=== PATIENT | male | born 1990 | race Caucasian/White ===

== ENCOUNTER 2021-11-18 08:50 | Emergency (ER) | payer OTHER ==
[2021-11-18 09:40] LABS: Absolute Lymphocytes (CBC) 0.5 K/uL (0.7-4.9); Hematocrit 46.1 % (39.6-49.0); Lymphocytes % 18.1 % (15.3-44.8); MPV 8.4 fL (7.6-11.3); RBC Red Blood Cell Count 4.93 M/uL (4.33-5.43)
[2021-11-18 10:01] LABS: BUN Blood Urea Nitrogen 13 mg/dL (7-18); Bicarbonate 33 mmol/L (21-32); Ferritin 315.5 ng/mL (26-388); Glucose Level 131 mg/dL (74-106); Sodium Level 141 mmol/L (136-145)
[2021-11-18 10:31] LABS: Blood Morphology Comment NOT SEEN (NOT SEEN); Platelet Estimate ADEQ; White Blood Cell Scan OK (OK)
--- NOTE | 2021-11-18 10:43 | RAD REPORT ---
EXAM DESCRIPTION: CT - Chest For Pe Angio - 11/18/2021 10:26 am CLINICAL HISTORY: Chest pain. DYSPNEA COMPARISON: Chest Single View dated 11/18/2021 TECHNIQUE: CT angiogram of the pulmonary arteries was performed with MIP. All CT scans are performed using dose optimization technique as appropriate and may include automated exposure control or mA/KV adjustment according to patient size. FINDINGS: No evidence of pulmonary thromboembolism. No acute aortic finding demonstrated. Moderate patchy opacities are present in the right lung predominately, most compatible with pneumonia . The left lung is essentially clear. Trace right pleural fluid. No concerning bony finding. IMPRESSION: No evidence of pulmonary thromboembolism. Moderate patchy opacity in the right lung most compatible with pneumonia.
--- NOTE | 2021-11-18 10:45 | RAD REPORT ---
EXAM DESCRIPTION: RAD - Chest Single View - 11/18/2021 10:29 am CLINICAL HISTORY: DYSPNEA Chest pain. COMPARISON: No comparisons FINDINGS: Portable technique limits examination quality. Moderate opacity in the right lung is present compatible with pneumonia. The left lung is grossly josé miguel ar. The heart is normal in size. No displaced fractures.
--- NOTE | 2021-11-18 10:59 | EDPHYS ---
Physician Documentation [facility] Name: Rc Huertas Age: 31 yrs Sex: Male : 1990 Arrival Date: 11/18/2021 Time: 08:56 Bed 14 Private MD: Daniel Frye C ED Physician Hank Ramires HPI: 11/18 09:27 This 31 yrs old Male presents to ER via Wheelchair with complaints of Covid+,Low O2. kb 09:28 The patient or guardian reports congestion, low o2 sat. Onset: The symptoms/episode kb began/occurred 6 day(s) ago. Severity of symptoms: At their worst the symptoms were moderate, in the emergency department the symptoms are unchanged. Modifying factors: The symptoms are alleviated by nothing, the symptoms are aggravated by nothing. Associated signs and symptoms: The patient has no apparent associated signs or symptoms. The patient has not experienced similar symptoms in the past. The patient has been recently seen by a physician:. Mother states pt was diagnosed with covid 6 days ago. States she has been monitoring oxygen sat and this morning it was 88%, then 93% before leaving the house. Called Dr Frye and was told to come in for eval. No resp distress noted. O2 sat 94-96% on room air. Historical: - Allergies: 09:04 Sulfa (Sulfonamide Antibiotics); ap3 - Home Meds: 09:04 Eliquis 2.5 mg oral tab 1 tab 2 times per day [Active]; ap3 - PMHx: 09:04 Down syndrome; DVT-leg; cervival fusion; hip replacement; ap3 - Immunization history:: Client reports having NOT received the Covid vaccine. - Social history:: Smoking status: unknown. ROS: 09:30 Constitutional: Negative for fever, chills, and weight loss. kb 09:30 Respiratory: Positive for shortness of breath. 09:30 All other systems are negative. Exam: 09:31 Constitutional: This is a well developed, well nourished patient who is awake, alert, kb and in no acute distress. Head/Face: Normocephalic, atraumatic. ENT: Moist Mucous membranes Cardiovascular: Regular rate and rhythm with a normal S1 and S2. No gallops, murmurs, or rubs. No pulse deficits. Respiratory: Respirations even and unlabored. No increased work of breathing. Talking in full sentences Skin: Warm, dry with normal turgor. Normal color. MS/ Extremity: Pulses equal, no cyanosis. Neurovascular intact. Full, normal range of motion. Neuro: Awake and alert, GCS 15, oriented to person, place, time, and situation. Moves all extremities. Normal gait. Psych: Awake, alert, with orientation to person, place and time. Behavior, mood, and affect are within normal limits. Vital Signs: 09:00 BP 118 / 76; Pulse 76; Resp 18; Temp 97.9; Pulse Ox 94% on R/A; Weight 74.84 kg; Height ap3 5 ft. 6 in. (167.64 cm); 10:12 BP 106 / 79; Pulse 73; Resp 18; Pulse Ox 95% on R/A; ic1 11:08 BP 102 / 62; Pulse 72; Resp 18; Pulse Ox 97% on R/A; ic1 09:00 Body Mass Index 26.63 (74.84 kg, 167.64 cm) ap3 MDM: 09:06 Patient medically screened. kb 09:30 Data reviewed: vital signs, nurses notes. Data interpreted: Pulse oximetry: on room air kb is 96 %. Interpretation: normal. 10:54 Counseling: I had a detailed discussion with the patient and/or guardian regarding: the kb historical points, exam findings, and any diagnostic results supporting the discharge/admit diagnosis, lab results, radiology results, the need for further work-up and treatment in the hospital. Physician consultation: Biju Cano MD. 11:09 ED course: Parents do not want pt to be admitted at this time. Want to take pt home to care for him. States they will continue to monitor oxygen sat at home and return for sat less that 90% sustained. . 11/18 09:06 Order name: BMP; Complete Time: 10:03 kb 11/18 09:06 Order name: CBC with Diff; Complete Time: 10:33 kb 11/18 09:06 Order name: D-Dimer; Complete Time: 10:03 kb 11/18 09:06 Order name: Ferritin; Complete Time: 10:03 kb 11/18 09:06 Order name: Lactate; Complete Time: 09:59 kb 11/18 09:06 Order name: Procalcitonin; Complete Time: 10:20 kb 11/18 09:06 Order name: Troponin HS; Complete Time: 10:03 kb 11/18 09:06 Order name: CXR XRAY; Complete Time: 10:47 kb 11/18 09:06 Order name: EKG; Complete Time: 09:07 kb 11/18 09:58 Order name: CBC Smear Scan; Complete Time: 10:33 EDMS 11/18 10:01 Order name: CT Chest For PE Angio; Complete Time: 10:47 kb 11/18 09:06 Order name: Cardiac monitoring kb 11/18 09:06 Order name: Droplet/Contact Precautions; Complete Time: 09:31 kb 11/18 09:06 Order name: EKG - Nurse/Tech; Complete Time: 09:31 kb 11/18 09:06 Order name: IV Start; Complete Time: 09:31 kb 11/18 09:06 Order name: Labs collected and sent; Complete Time: 09:31 kb 11/18 09:06 Order name: O2 Per Protocol; Complete Time: 09:31 kb 11/18 09:06 Order name: O2 Sat Monitoring; Complete Time: 09:31 kb Administered Medications: 11:03 Drug: Rocephin (cefTRIAXone) 1 grams Route: IV; Rate: calculated rate; Site: right ic1 antecubital; 11:34 Drug: SOLU-Medrol (methylPrednisoLONE) 125 mg Route: IVP; Site: right antecubital; ic1 Disposition: 13:28 Co-signature as Attending Physician, Hank Ramires MD I agree with the assessment and kdr plan of care. Disposition Summary: 11/18/21 11:10 Discharge Ordered Location: Home(11/18/21 11:10) kb Condition: Stable(11/18/21 11:10) kb Diagnosis - Pneumonia, unspecified organism(11/18/21 11:10) kb - Coronavirus infection, unspecified(11/18/21 11:10) kb Followup: kb - With: Emergency Department - When: As needed - Reason: Worsening of condition Followup: kb - With: Private Physician - When: 2 - 3 days - Reason: Recheck today's complaints, Continuance of care, Re-evaluation by your physician Discharge Instructions: - Discharge Summary Sheet kb - Community-Acquired Pneumonia, Adult, [id number] kb - COVID-19 kb Forms: - Medication Reconciliation Form kb - Thank You Letter kb - Antibiotic Education kb - Prescription Opioid Use kb Prescriptions: - Prednisone 20 mg Oral Tablet - take 1 tablet by ORAL route once daily for 5 days; 5 tablet; Refills: 0, kb Product Selection Permitted - Zithromax 500 mg Oral Tablet - take 1 tablet by ORAL route once daily for 5 days; 5 tablet; Refills: 0, kb Product Selection Permitted Signatures: Dispatcher [employer] EDMisa Rowley, Hank Chand MD MD kdr Prokisch, Amanda RN RN ap3 Serena Jaramillo RN RN ic1 Corrections: (The following items were deleted from the chart) 11:10 10:59 Inpatient Admission kb kb 11: 10:59 Biju Cano kb kb 11:10 10:59 Telemetry/MedSurg (Inpatient) kb kb 11:10 10:59 Stable kb kb 11: 10:59 new kb kb 11:10 10:59 are unchanged kb kb 11:10 10:59 Standard kb kb 11:10 10:59 kb kb 11:10 10:59 Pneumonia, unspecified organism kb kb 11:10 10:59 Coronavirus infection, unspecified kb kb
--- NOTE | 2021-11-18 10:59 | ER ---
Nurse's Notes [facility] Name: Rc Huertas Age: 31 yrs Sex: Male : 1990 Arrival Date: 11/18/2021 Time: 08:56 Bed 14 Private MD: Daniel Frye C Diagnosis: Pneumonia, unspecified organism;Coronavirus infection, unspecified Presentation: 11/18 09:00 Chief complaint: Spouse and/or significant other states: the patient is COVID+, the ap3 parent states that the patients O2 dropped to 88/87% when he woke up. Patient is not on oxygen. It is reported the patient tested positive 11/12/2021. Coronavirus screen: Client presents with at least one sign or symptom that may indicate coronavirus-19. Standard/surgical mask placed on the client. Ebola Screen: No symptoms or risks identified at this time. Initial Sepsis Screen: Does the patient meet any 2 criteria? No. Patient's initial sepsis screen is negative. Does the patient have a suspected source of infection? Yes: Productive cough/pneumonia. Risk Assessment: Do you want to hurt yourself or someone else? Patient reports no desire to harm self or others. Onset of symptoms was November 12, 2020. 09:00 Method Of Arrival: Wheelchair ap3 09:00 Acuity: DEMETRIS 3 ap3 Triage Assessment: 09:05 General: Appears in no apparent distress. comfortable, Behavior is calm. Pain: Denies ap3 pain. Respiratory: Airway is patent Respiratory effort is even, unlabored. Historical: - Allergies: 09:04 Sulfa (Sulfonamide Antibiotics); ap3 - Home Meds: 09:04 Eliquis 2.5 mg oral tab 1 tab 2 times per day [Active]; ap3 - PMHx: 09:04 Down syndrome; DVT-leg; cervival fusion; hip replacement; ap3 - Immunization history:: Client reports having NOT received the Covid vaccine. - Social history:: Smoking status: unknown. Screenin:06 Abuse screen: Denies threats or abuse. Nutritional screening: No deficits noted. ap3 Tuberculosis screening: No symptoms or risk factors identified. 09:32 Fall Risk None identified. ic1 Assessment: 09:32 Reassessment: Pt brought in by mom and dad w c/o low sats while at home. States when pt ic1 first wakes up, he sats at 88% on RA, but after breathing treatments, he goes up to 94% on RA. Pt appears in NAD. General: Appears in no apparent distress. comfortable, Behavior is calm. Pain: Denies pain. Neuro: No deficits noted. Cardiovascular: No deficits noted. Cardiovascular: Rhythm is sinus rhythm. Respiratory: No deficits noted. Reports low O2 sats, 97% on RA. GI: No deficits noted. : No deficits noted. EENT: No deficits noted. Derm: No deficits noted. Musculoskeletal: No deficits noted. 10:11 Reassessment: Pt wheeled to CT by parents and dietetic technician. In NAD. ic1 10:25 Reassessment: Pt returned to room from CT. Placed on cont monitoring. Parents at ic1 bedside. Remains in NAD. Vital Signs: 09:00 BP 118 / 76; Pulse 76; Resp 18; Temp 97.9; Pulse Ox 94% on R/A; Weight 74.84 kg; Height ap3 5 ft. 6 in. (167.64 cm); 10:12 BP 106 / 79; Pulse 73; Resp 18; Pulse Ox 95% on R/A; ic1 11:08 BP 102 / 62; Pulse 72; Resp 18; Pulse Ox 97% on R/A; ic1 09:00 Body Mass Index 26.63 (74.84 kg, 167.64 cm) ap3 ED Course: 08:56 Patient arrived in ED. mr 08:56 Daniel Frye MD is Private Physician. mr 08:58 Misa Carter FNP-C is [facility]. kb 08:58 Hank Ramires MD is Attending Physician. kb 09:04 Triage completed. ap3 09:06 Arm band placed on left wrist. ap3 09:12 Serena Jaramillo, SHWETA is Primary Nurse. ic1 09:32 Patient has correct armband on for positive identification. Call light in reach. Adult ic1 w/ patient. 09:32 BMP Sent. ic1 09:32 CBC with Diff Sent. ic1 09:32 D-Dimer Sent. ic1 09:32 Ferritin Sent. ic1 09:32 Lactate Sent. ic1 09:32 Procalcitonin Sent. ic1 09:32 Troponin HS Sent. ic1 09:32 Inserted saline lock: 20 gauge in right antecubital area, using aseptic technique. ic1 Blood collected. 10:27 CT Chest For PE Angio In Process Unspecified. EDMS 10:30 CXR XRAY In Process Unspecified. EDMS 10:58 Biju Cano MD is Hospitalizing Provider. kb 11:40 IV discontinued, intact, bleeding controlled, No redness/swelling at site. Pressure ic1 dressing applied. Administered Medications: 11:03 Drug: Rocephin (cefTRIAXone) 1 grams Route: IV; Rate: calculated rate; Site: right ic1 antecubital; 11:34 Drug: SOLU-Medrol (methylPrednisoLONE) 125 mg Route: IVP; Site: right antecubital; ic1 Outcome: 10:59 Decision to Hospitalize by Provider. kb 11:08 Discharged to home via wheelchair, with family. ic1 11:08 Condition: stable 11:08 Discharge instructions given to patient, family, Instructed on discharge instructions, follow up and referral plans. Demonstrated understanding of instructions, follow-up care, medications, Prescriptions given X 11:10 Discharge ordered by MD. kb 11:40 Prescriptions given X 2. ic1 11:40 Patient left the ED. ic1 Signatures: Dispatcher [employer] EDMS Misa Carter, APPLICATION CONSULTANT-C APPLICATION CONSULTANT-Ratna Joy Rushing mr Natalia Rea, RN RN dina3 Serena Jaramillo RN RN ic1
[2021-11-18] MEDS ORDERED: CEFTRIAXONE 1000 MG/VIAL ONE (11:02)
[2021-11-18] MEDS ORDERED: NA CHLORIDE 0.9% 50 ML ONE (11:02)
[2021-11-18] MEDS ORDERED: METHYLPREDNISOLONE 125 MG INJ ONE (11:18)
[2021-11-18 12:16] VITALS: TEMP 97.9
[2021-11-18 12:19] VITALS: BP 102/62; O2SAT 97
== END 2021-11-18 11:40 | disposition home or self-care (01) ==
LOC: ER 08:50
DX: U07.1 COVID-19 (principal); J18.9 Pneumonia, unspecified organism; Z86.718 Personal history of other venous thrombosis and embolism; Z79.01 Long term (current) use of anticoagulants; Z88.2 Allergy status to sulfonamides
CPT/HCPCS: 85025; 80048; 36415; 85379; 83605; 84484; 82728; 84145; 71275; 71045; 96375; 96374; 99284; Q9967; J2930; 93005

== ENCOUNTER 2024-03-18 19:06 | Emergency (ER) | payer OTHER ==
[2024-03-18 20:28] LABS: Absolute Eosinophils 0.1 K/uL (0-0.5); Absolute Monocytes 0.5 K/uL (0.1-1.3); Absolute Neutrophil 5.7 K/uL (1.8-8.0); Basophils % 0.7 % (0-1.3); Eosinophils % 1.5 % (0-4.4); Hematocrit 36.9 % (39.6-49.0); Hemoglobin 12.3 g/dL (13.6-17.9); Lymphocytes % 13.4 % (15.3-44.8); MCHC 33.2 g/dL (32.0-36.0); MCV 93.3 fL (80-100); MPV 7.2 fL (7.6-11.3); Monocytes % 6.2 % (3.3-12.3); Neutrophils % 78.2 % (41.7-73.7); Nucleated Red Blood Cells % 0.1 % (0-0); Platelets 482 thou/uL (152-406); RBC Red Blood Cell Count 3.96 M/uL (4.33-5.43); Red Cell Distribution Width 13.3 % (12.1-15.2)
[2024-03-18 20:54] LABS: PTT, Activated Partial Thromb 30.4 SECONDS (24.3-36.9); Protime INR 1.19
[2024-03-18 21:05] LABS: Albumin 2.2 g/dL (3.4-5.0); Albumin/Globulin Ratio 0.5 (1.1-1.8); Anion Gap 8.9 mEq/L (5.0-15.0); Bilirubin Total 0.4 mg/dL (0.2-1.0); Globulin 4.8 g/dL (2.3-3.5); Potassium 3.9 mEq/L (3.5-5.1); Troponin High Sensitivity 58.2 pg/mL (<58.9)
--- NOTE | 2024-03-18 21:30 | RAD REPORT ---
EXAM DESCRIPTION: USExtrem Venous W Compress Bil03/18/2024 9:13 pm CLINICAL HISTORY: Leg swelling COMPARISON: 2019 FINDINGS: The common femoral, superficial femoral, greater saphenous, popliteal and posterior tibial veins bilaterally are compressible and demonstrate augmentation. Doppler demonstrates good flow. Grayscale, color and spectral analysis performed on all vessels IMPRESSION: No evidence of deep venous thrombosis involving either lower extremity.
--- NOTE | 2024-03-18 21:33 | RAD REPORT ---
EXAM DESCRIPTION: US - Extremity Nonvascular Limited - 03/18/2024 9:14 pm CLINICAL HISTORY: Left buttock pain/swelling COMPARISON: None FINDINGS: 9 x 2 millimeter fluid collection is present within the subcutaneous tissues left buttock. Significant increased vascularity not noted IMPRESSION: 9 x 2 millimeter fluid collection within the subcutaneous tissues left buttock may repre sent a small abscess
[2024-03-18] MEDS ORDERED: CLINDAMYCIN 900MG/D5W 900 MG/50 ML IVPB IV ONE (22:19)
--- NOTE | 2024-03-18 22:47 | ER ---
Nurse's Notes [facility] Name: cR Huertas Age: 33 yrs Sex: Male : 1990 Arrival Date: 03/18/2024 Time: 19:06 Bed 18 Private MD: Diagnosis: Cellulitis of buttock-left;Cutaneous abscess of buttock-left Presentation: 03/18 19:16 Chief complaint: Parent and/or Guardian states: we were here last Sunday for sores bm8 on him. but they dont seem to be getting better. He has swelling to both feet that are new and he is starting to develop a new sore on his right heel. Coronavirus screen: At this time, the client does not indicate any symptoms associated with coronavirus-19. Ebola Screen: Patient negative for fever greater than or equal to 101.5 degrees Fahrenheit, and additional compatible Ebola Virus Disease symptoms Patient denies exposure to infectious person. Patient denies travel to an Ebola-affected area in the 21 days before illness onset. No symptoms or risks identified at this time. Initial Sepsis Screen: Does the patient meet any 2 criteria? No. Patient's initial sepsis screen is negative. Does the patient have a suspected source of infection? No. Patient's initial sepsis screen is negative. Risk Assessment: Do you want to hurt yourself or someone else? Patient reports no desire to harm self or others. Onset of symptoms was March 12, 2024. 19:16 Method Of Arrival: Wheelchair bm8 19:16 Acuity: DEMETRIS 3 bm8 Triage Assessment: 19:19 General: Appears in no apparent distress. uncomfortable, Behavior is calm, cooperative. bm8 Pain: Denies pain. Cardiovascular: Reports Capillary refill < 3 seconds Patient's skin is warm and dry. 2+ pitting edema i bilateral lower ext. Parent/caregiver reports patient has had fatigue. Respiratory: No deficits noted. Airway is patent Trachea midline Respiratory effort is even, unlabored, Respiratory pattern is regular, symmetrical. Historical: - Allergies: 19:19 Sulfa (Sulfonamide Antibiotics); bm8 19:19 Latex, Natural Rubber; bm8 - Home Meds: 19:19 Unable to obtain [Active]; bm8 - PMHx: 19:19 cervival fusion; down syndrome; DVT-leg; hip replacement; bm8 - Immunization history:: Adult Immunizations up to date. - Infectious Disease History:: Denies. - Social history:: Smoking status: Patient denies any tobacco usage or history of. Screenin:35 [facility] ED Fall Risk Assessment (Adult) History of falling in the last 3 months, jw7 including since admission No falls in past 3 months (0 pts) Confusion or Disorientation No (0 pts) Intoxicated or Sedated No (0 pts) Impaired Gait Yes (1 pt) Mobility Assist Device Used Yes (1 pt) Altered Elimination Yes (1 pt) Score/Fall Risk Level 3 or more points = High Risk Oriented to surroundings, Maintained a safe environment, Educated pt \T\ family on fall prevention, incl call for assistance when getting out of bed, Assessed \T\ reinforced patient's understanding of fall precautions, Provided non-skid footwear, Hourly rounding (assess needs \T\ fall precautionary measures) done. Abuse screen: Denies threats or abuse. Denies injuries from another. Nutritional screening: No deficits noted. Tuberculosis screening: No symptoms or risk factors identified. Assessment: 19:35 General: Appears in no apparent distress. comfortable, Behavior is calm, cooperative, jw7 appropriate for age. Pain: Denies pain. Neuro: Level of Consciousness is awake, alert, obeys commands, Oriented to Appropriate for age. Cardiovascular: Heart tones S1 S2 present Capillary refill < 3 seconds Patient's skin is warm and dry. Respiratory: Airway is patent Trachea midline Respiratory effort is even, unlabored, Respiratory pattern is regular, symmetrical. GI: Abdomen is round non-distended, Bowel sounds present X 4 quads. Abd is soft and non tender X 4 quads. : No deficits noted. No signs and/or symptoms were reported regarding the genitourinary system. EENT: No deficits noted. No signs and/or symptoms were reported regarding the EENT system. Derm: Skin is healthy with good turgor, Skin is dry, Skin is normal, Skin temperature is warm. Musculoskeletal: Circulation, motion, and sensation intact. Range of motion: intact in all extremities. 20:30 Reassessment: Patient appears in no apparent distress at this time. No changes from jw7 previously documented assessment. Patient and/or family updated on plan of care and expected duration. Pain level reassessed. 21:27 Reassessment: Patient appears in no apparent distress at this time. No changes from jw7 previously documented assessment. Patient and/or family updated on plan of care and expected duration. Pain level reassessed. 22:30 Reassessment: Patient appears in no apparent distress at this time. No changes from jw7 previously documented assessment. Patient and/or family updated on plan of care and expected duration. Pain level reassessed. 23:07 Reassessment: Patient appears in no apparent distress at this time. No changes from jw7 previously documented assessment. Patient and/or family updated on plan of care and expected duration. Pain level reassessed. Vital Signs: 19:16 BP 73 / 56; Pulse 85; Resp 18; Temp 98.2; Pulse Ox 97% ; Weight 68.04 kg; Height 5 ft. bm8 6 in. ; Pain 0/10; 20:00 BP 113 / 73; Pulse 85; Resp 15 S; Pulse Ox 97% on R/A; jw7 21:15 BP 117 / 72; Pulse 79; Resp 16 S; Pulse Ox 96% on R/A; jw7 22:15 BP 112 / 62; Pulse 92; Resp 16 S; Pulse Ox 97% on R/A; jw7 23:09 BP 109 / 69; Pulse 90; Resp 16 S; Pulse Ox 96% on R/A; jw7 19:16 Body Mass Index 24.21 (68.04 kg, 167.64 cm) bm8 19:16 Pain Scale: Non-Verbal bm8 ED Course: 19:10 Patient arrived in ED. im 19:13 Randy Castano PA is PHCP. cp 19:13 Jm Olguin MD is Attending Physician. cp 19:16 Adam Bates, RN is Primary Nurse. bm8 19:19 Triage completed. bm8 19:19 Arm band placed on right wrist. bm8 19:35 Patient has correct armband on for positive identification. Bed in low position. Call jw7 light in reach. Side rails up X2. Adult w/ patient. 19:35 Provided Education on: Use of Call Light. jw7 20:00 Inserted saline lock: 20 gauge in right forearm, using aseptic technique. jw7 20:00 First set of blood cultures drawn by me. jw7 20:16 Initial lab(s) drawn, by me, sent to lab. Second set of blood cultures drawn by me. jw7 20:17 EKG done, by automation technician. reviewed by Randy HAMMOND. ls5 21:15 US Extremity Venous W Compression Saqib In Process Unspecified. EDMS 21:15 US Extrmty Nonvasular Limited: right buttock In Process Unspecified. EDMS 22:45 Chin Rene MD is Referral Physician. cp 23:09 No provider procedures requiring assistance completed. IV discontinued, intact, jw7 bleeding controlled, No redness/swelling at site. Pressure dressing applied. Administered Medications: 22:23 Drug: Clindamycin IVPB 900 mg IVPB once over 30 mins; (mix in 50 mL) Route: IVPB; jw7 Infused Over: 30 mins; Site: right forearm; 23:10 Follow up: Response: No adverse reaction; IV Status: Completed infusion; IV Intake: [id number] 22:59 Drug: Trimethoprim-Sulfamethoxazole PO (160 mg-800 mg (DS) 1 tablet PO once Route: PO; jw7 23:10 Follow up: Response: No adverse reaction; Medication administered at discharge. jw7 Medication: 23:10 VIS not applicable for this client. jw7 Intake: 23:10 IV: 50ml; Total: 50ml. jw7 Outcome: 22:47 Discharge ordered by MD. cp 23:09 Discharged to home via wheelchair, with family, jw7 23:09 Condition: stable 23:09 Discharge instructions given to family, Instructed on discharge instructions, follow up and referral plans. medication usage, Demonstrated understanding of instructions, follow-up care, medications, Prescriptions given X 2, 23:10 Patient left the ED. jw7 Signatures: Dispatcher [employer] EDMS Randy Castano PA PA cp Cherri Alanis RN RN jw7 Costa Rivera ls5 Brittney Olson Brad, RN RN bm8
--- NOTE | 2024-03-18 22:47 | EDPHYS ---
Physician Documentation [facility] Name: Rc Huertas Age: 33 yrs Sex: Male : 1990 Arrival Date: 03/18/2024 Time: 19:06 Bed 18 Private MD: ED Physician Jm Olguin HPI: 03/18 20:00 This 33 yrs old Male presents to ER via Wheelchair with complaints of Leg Swelling, Hip cp Pain, Foot Pain. 20:00 The patient or guardian reports wound with drainage to right hip. cp 20:00 Associated signs and symptoms: Pertinent positives: swelling and erythema noted to left cp buttock. Parents report appt today rescheduled with DR Rene for for evaluation of wounds to right hip and right foot and left buttock. Currently taking prescribed Keflex. Historical: - Allergies: 19:19 Sulfa (Sulfonamide Antibiotics); bm8 19:19 Latex, Natural Rubber; bm8 - Home Meds: 19:19 Unable to obtain [Active]; bm8 - PMHx: 19:19 cervival fusion; down syndrome; DVT-leg; hip replacement; bm8 - Immunization history:: Adult Immunizations up to date. - Infectious Disease History:: Denies. - Social history:: Smoking status: Patient denies any tobacco usage or history of. ROS: 20:05 Constitutional: HX per HPI cp 20:05 Constitutional: Negative for fever, cp 20:05 Abdomen/GI: Negative for vomiting, diarrhea, 20:05 All other systems are negative, Exam: 20:10 Constitutional: The patient appears in no acute distress, alert, awake, cp non-diaphoretic, non-toxic, well developed, well nourished, 20:10 Head/Face: Normocephalic, atraumatic. cp 20:10 Eyes: Periorbital structures: appear normal, Conjunctiva: normal, no exudate, no injection, Sclera: no appreciated abnormality, Lids and lashes: appear normal, bilaterally, 20:10 ENT: External ear(s): are unremarkable, Nose: is normal, Mouth: Lips: moist, Oral mucosa: pink and intact, moist, Posterior pharynx: is normal, airway is patent, no erythema, no exudate, 20:10 Chest/axilla: Inspection: normal, 20:10 Cardiovascular: Rate: normal, Rhythm: regular, Edema: pedal edema, that is mild, ankle edema, that is mild, JVD: is not appreciated, 20:10 Respiratory: the patient does not display signs of respiratory distress, Respirations: normal, no use of accessory muscles, no retractions, labored breathing, is not present, Breath sounds: are clear throughout, no decreased breath sounds, no stridor, no wheezing, 20:10 Abdomen/GI: Inspection: abdomen appears normal, Palpation: abdomen is soft and non-tender, in all quadrants, 20:10 Skin: large area of mild erythema, induration noted left buttock, right hip with small area of mild erythema and swelling, medial side of right foot with small area of swelling. 20:10 Neuro: Orientation: no acute changes, per family, 20:14 ECG was reviewed by the Attending Physician. Vital Signs: 19:16 BP 73 / 56; Pulse 85; Resp 18; Temp 98.2; Pulse Ox 97% ; Weight 68.04 kg; Height 5 ft. bm8 6 in. ; Pain 0/10; 20:00 BP 113 / 73; Pulse 85; Resp 15 S; Pulse Ox 97% on R/A; jw7 21:15 BP 117 / 72; Pulse 79; Resp 16 S; Pulse Ox 96% on R/A; jw7 22:15 BP 112 / 62; Pulse 92; Resp 16 S; Pulse Ox 97% on R/A; jw7 23:09 BP 109 / 69; Pulse 90; Resp 16 S; Pulse Ox 96% on R/A; jw7 19:16 Body Mass Index 24.21 (68.04 kg, 167.64 cm) bm8 19:16 Pain Scale: Non-Verbal bm8 MDM: 19:33 Patient medically screened. cp 22:05 Data reviewed: vital signs, nurses notes, lab test result(s), EKG, radiologic studies, cp ultrasound. 22:05 Management of patient was discussed with the following: Crystal Growing Technician: DR Rene not cp available for consult and patient can be admitted to hospitalist and DR Manjarrez consulted. 22:45 ED course: VSS. Discussed admission vs outpatient treatment with clindamycin and cp Bactrim and f/u with DR Rene. Parents would like to f/u at scheduled appt with DR Rene. Parents instructed to keep patient npo after midnight Sunday night . 03/18 19:55 Order name: Blood Culture Adult (2) cp 03/18 19:55 Order name: CBC with Diff; Complete Time: 21:09 cp 03/18 21:09 Interpretation: Normal except: RBC 3.96; HGB 12.3; HCT 36.9; PLT 482; MPV 7.2; MERCEDES% cp 78.2; LYM% 13.4. 03/18 19:55 Order name: CMP; Complete Time: 21:09 cp 03/18 21:09 Interpretation: Normal except: ALB 2.2; GLOB 4.8; A/G 0.5. cp 03/18 19:55 Order name: Lactate w/ 2H reflex if indic.; Complete Time: 21:09 cp 03/18 19:55 Order name: Protime (+inr); Complete Time: 21:09 cp 03/18 19:55 Order name: Ptt, Activated; Complete Time: 21:09 cp 03/18 19:55 Order name: Troponin High Sensitivity; Complete Time: 21:09 cp 03/18 20:49 Order name: Glucose, Ancillary Testing; Complete Time: 21:09 EDMS 03/18 19:55 Order name: US Extremity Venous W Compression Saqib; Complete Time: 21:49 cp 03/18 21:49 Interpretation: Report reviewed. 03/18 19:55 Order name: US Extrmty Nonvasular Limited: right buttock; Complete Time: 21:49 cp 03/18 21:49 Interpretation: Report reviewed. 03/18 19:55 Order name: EKG; Complete Time: 19:56 cp 03/18 19:55 Order name: Accucheck; Complete Time: 20:38 cp 03/18 19:55 Order name: Cardiac monitoring; Complete Time: 20:22 cp 03/18 19:55 Order name: EKG - Nurse/Tech; Complete Time: 20:18 cp 03/18 19:55 Order name: IV Saline Lock - Large Bore; Complete Time: 20:22 cp 03/18 19:55 Order name: Labs collected and sent; Complete Time: 20:22 cp 03/18 19:55 Order name: O2 Per Protocol; Complete Time: 20:22 cp 03/18 19:55 Order name: O2 Sat Monitoring; Complete Time: 20:22 cp 03/18 19:55 Order name: Vital Signs; Complete Time: 20:22 cp 03/18 19:55 Order name: Bladder Scanner: pre and post void; Complete Time: 21:05 cp EC:14 Rate is 83 beats/min. Rhythm is regular. AK interval is normal. QRS interval is normal. cp QT interval is normal. T waves are Inverted in leads aVL, aVR. Interpreted by me. Reviewed by me. Administered Medications: 22:23 Drug: Clindamycin IVPB 900 mg IVPB once over 30 mins; (mix in 50 mL) Route: IVPB; jw7 Infused Over: 30 mins; Site: right forearm; 23:10 Follow up: Response: No adverse reaction; IV Status: Completed infusion; IV Intake: [id number] 22:59 Drug: Trimethoprim-Sulfamethoxazole PO (160 mg-800 mg (DS) 1 tablet PO once Route: PO; jw7 23:10 Follow up: Response: No adverse reaction; Medication administered at discharge. jw7 Disposition: 03/19 07:09 Co-signature as Attending Physician, Jm Olguin MD I reviewed the patient's care rn provided by the Advanced Practice Provider and agree with the diagnosis and treatment plan. Disposition Summary: 03/18/24 22:47 Discharge Ordered Problem: an ongoing problem cp Symptoms: have improved cp Condition: Stable cp Diagnosis - Cellulitis of buttock - left cp - Cutaneous abscess of buttock - left cp Followup: cp - With: Chin Rene MD - When: 03/20/2024 - Reason: Recheck today's complaints, in [facility] Discharge Instructions: - Discharge Summary Sheet cp - Skin Abscess cp - Cellulitis, Adult cp - Incision and Drainage cp Forms: - Medication Reconciliation Form cp - Antibiotic Education cp - Prescription Opioid Use cp - Patient Portal Instructions cp - Leadership Thank You Letter cp Prescriptions: - Clindamycin HCl 300 mg Oral Capsule - take 1 capsule ORAL route every 6 hours for 10 days; 40 capsule; Refills: 0, cp Product Selection Permitted - Bactrim DS 800-160 mg Oral Tablet - take 1 tablet ORAL route every 12 hours for 10 days; 20 tablet; Refills: 0, cp Product Selection Permitted Signatures: Dispatcher [facility] Jm Milton MD MD rn Page, Corey, PA PA cp Cherri Alanis RN RN jw7 Adam Bates RN RN bm8 Corrections: (The following items were deleted from the chart) 03/18 19: 19:56 Extrem Venous W Compression Saqib+[email or web address].RAD.BRZ ordered. EDMS EDMS 19:56 Extrmty Nonvasular Limited+[email or web address].RAD.BRZ ordered. EDMS EDMS 03/19 21:40 03/18 20:05 Constitutional: Negative for fever, poor PO intake, cp cp
[2024-03-18] MEDS ORDERED: SMZ./TMP. 800/160 MG TABLET ONE (22:48)
[2024-03-18 23:43] VITALS: BP 109/69; TEMP 98.2; O2SAT 96
--- NOTE | 2024-03-21 17:00 | EKG ---
Test Date: 2024-03-18 Test Time: 20:06:49 Noise Tester: SABA MEASUREMENT RESULTS: Intervals: Rate: 83 MA: 146 QRSD: 86 QT: 398 QTc: 467 [place]: P: 54 MA: 146 QRS: 79 T: 70 INTERPRETIVE STATEMENTS: Normal sinus rhythm Normal ECG Compared to ECG 03/12/2024 18:51:37 No significant changes Electronically Signed On 03-21-24 16:51:24 CDT by Tyler Whalen
== END 2024-03-18 23:10 | disposition home or self-care (01) ==
LOC: ER 19:06
DX: L03.317 Cellulitis of buttock (principal); L02.31 Cutaneous abscess of buttock; Z96.642 Presence of left artificial hip joint; Q90.9 Down syndrome, unspecified
CPT/HCPCS: 36415; 76882; 80053; 82947; 83605; 84484; 85025; 85610; 85730; 87040; 93005; 93970; 96365; 99284